=== PATIENT | male | born 1990 | race Hispanic/Latino ===

== ENCOUNTER 2019-04-01 15:22 | Emergency (ER) | payer SELFPAY ==
[2019-04-01] MEDS ORDERED: KETOROLAC TROMETHAMINE 60 MG/2 ML VIAL ONE (15:37)
[2019-04-01] MEDS ORDERED: LIDOCAINE 5% TOPICAL PATCH TP ONE (15:38)
[2019-04-01] MEDS ORDERED: CYCLOBENZAPRINE HCL 10 MG TABLET ONE (15:38)
== END 2019-04-01 16:52 | disposition home or self-care (01) ==
LOC: EDH 15:22
DX: S39.012A Strain of muscle, fascia and tendon of lower back, initial encounter (principal); X50.0XXA Overexertion from strenuous movement or load, initial encounter; Y93.89 Activity, other specified; Y92.89 Other specified places as the place of occurrence of the external cause; Y99.8 Other external cause status
CPT/HCPCS: 96372; 99283; J1885